=== PATIENT | female | born 1980 | race Caucasian/White ===

== ENCOUNTER 2016-05-19 07:36 | Emergency (ER) | payer OTHER ==
[~2016-05-19 07:36] MED LIST: IBUPROFEN600 MG PO; LEVOTHYROXINE75 MCG PO; PROVERA5 MG PO; TYLENOL/CODEINE #3 PO
--- NOTE | 2016-05-19 08:51 | ED NURSING NOTES ---
Clinical Report - Nurses [facility] [address] [place] [address] 05/19/2016 7:39 Patient: SCOOTER NEWMAN TRIAGE Triage time 07:46. Acuity: LEVEL 4. Chief Complaint: BACK PAIN and (back spasm). 07:51 05/19/16. Alert. No acute distress. SEPSIS SCREEN: Sepsis Screen. Negative (no infection suspected/documented). ROSANA COMA SCORE: [place] Coma Scale: 15- eyes open spontaneously (4); best verbal response- oriented x 4 (5); best motor response- obeys commands (6). --07:51 Saundra Heller R.N. 07:46 05/19/16. BP: 125/82. HR: 67. RR: 18. O2 saturation: 100% on room air. Temp: 98 F. Pain level now: 8/10. Additional comments: pt states pain "is a 20" when her back spasms. --07:51 Saundra Heller R.N. Weight: 89.3 kg stated. Height/Length: 66 inches Per Patient. BMI: 31.8. --09:22 Saundra Heller R.N. Medications Levothroid Oral. --07:47 Saundra Heller R.N. Allergies No Known Drug Allergy. --07:47 Saundra Heller R.N. History Historian: patient. Accompanied by family. This started yesterday. ( pt states she was moving furniture yesterday when the spasms started.). No numbness, weakness, tingling, trouble walking or fever. No extremity pain. PAST MEDICAL HX: Immunizations: up-to-date. Denies current . SOCIAL HX: Light tobacco smoker- less than 1/2 a pack per day. No alcohol use or drug use. FALL RISK ASSESSMENT: Fall risk assessment completed. No fall risk identified. NUTRITIONAL RISK ASSESSMENT: The nutritional risk assessment revealed no deficiencies. FUNCTIONAL ASSESSMENT: Functional assessment: no impairments noted. LEARNING NEEDS ASSESSMENT: The learning needs assessment revealed no barriers. SKIN INTEGRITY ASSESSMENT: Skin integrity risk assessment completed. No skin integrity risk identified. --07:51 Saundra Heller R.N. PROBLEMS: Syncope. --07:48 Saundra Heller R.N. ADDITIONAL SURGERIES: . Thyroid Surgery. --07:48 Saundra Heller R.N. Hysterectomy. --07:48 Saundra Heller R.N. Interventions ID band on patient. To treatment room. --07:51 Saundra Heller R.N. PHYSICAL ASSESSMENT 07:52 05/19/16. Ambulatory to room. GENERAL / NEURO / PSYCH: Appears in pain. RESPIRATORY: Respirations not labored. EXTREMITIES: ROM of extremities within normal limits. BACK: ROM of neck and back within normal limits. Soft tissue tenderness in the right mid and lower lumbar paraspinous region. --07:52 Saundra Heller R.N. NURSING PROGRESS NOTES 07:53 05/19/16. Two patient identifiers checked. Call light placed in reach. Bed placed in lowest position. Brakes of bed on. Patient ready for evaluation- chart flagged and notification provided. Patient informed about reason for wait and about plan of care. --07:53 Saundra Heller R.N. 08:53 05/19/2016 Dilaudid (HYDROmorphone HCl PF) IM 1 mg given. Given in the right deltoid. Allergies verified, confirmed 5 rights and sedative warning given to the patient. --08:53 Saundra Heller R.N. 08:55 05/19/2016 Toradol (Ketorolac Tromethamine) IM 60 mg given. Given in the left anterior lateral thigh. Allergies verified and confirmed 5 rights. --08:55 Saundra Heller R.N. 09:12 05/19/2016 Flexeril (Cyclobenzaprine HCl) PO Tablets 10 mg given. Allergies verified and confirmed 5 rights. --09:12 Saundra Heller R.N. DISPOSITION / DISCHARGE 09:23 05/19/16. No learning barriers present. Discharge instructions provided and reviewed with the patient and family. Reviewed warnings. Reviewed medication(s). Treatments reviewed. Activity restrictions reviewed. Work note given. Patient verbalized understanding. Written instructions provided in Seneg[place]e. The patient was discharged by the physician. She was discharged home and accompanied by family. She left the Emergency Department ambulatory and via private vehicle. Spouse driving. --09:23 Saundra Hleler R.N. 09:21 05/19/16. BP: 125/78. HR: 72. RR: 18. O2 saturation: 98%. Temp: deferred. Pain level now: 3/10. Additional comments: pt is able to move without pain. --09:23 Saundra Heller R.N. Locked/Released at 05/19/2016 10:03 by Saundra Heller R.N.
--- NOTE | 2016-05-19 08:51 | ED ORDER SUMMARY ---
..... Patient: SCOOTER NEWMAN OrderSheet [facility] VisitID: [id number] [address] [place] [address] 35y, F Registration Date/Time: 05/19/2016 ORDER SHEET Weight: 89.3 kg (stated) Allergies: No Known Drug Allergy GENERAL ORDERS: MEDICATION ORDERS: Dilaudid IM 1 mg (HIGH ALERT MEDICATION, NOW) (08:36 05/19/2016 Oz ESCAMILLA) (Ack 8:42 RMarsden R.N.) (8:53 RMarsden R.N.) Toradol IM 60 mg (NOW) (08:36 05/19/2016 Oz ESCAMILLA) (Ack 8:42 RMarsden R.N.) (8:55 RMarsden R.N.) Flexeril PO 10 mg (NOW) (09:08 05/19/2016 Oz ESCAMILLA) (Ack 9:08 RMarsden R.N.) (9:12 RMarsden R.N.) IV FLUIDS: ORDER SHEET NOTES: [Electronically signed by Saundra Heller R.N. (10:03 05/19/2016)] [Electronically signed by Tiera Haskins MD (17:52 05/19/2016)] [Electronically locked/signed by Saundra Heller R.N. (10:05/19/2016)]
--- NOTE | 2016-05-19 08:51 | ED CLINICAL REPORT ---
Clinical Report - Physicians/Mid Levels [facility] [address] [place] [address] 05/19/2016 7:39 Patient: SCOOTER NEWMAN Time Seen: 07:57. Arrived- By private vehicle. Historian- patient. HISTORY OF PRESENT ILLNESS Chief Complaint: BACK PAIN. Onset was yesterday and it is still present. Modifying factors- worsened by rotation, bending over or lifting. Not relieved by anything. It is described as being moderate in degree and in the area of the left side of the upper lumbar spine, left side of the lower lumbar spine, right side of the upper lumbar spine and right side of the lower lumbar spine. The quality is noted to be "pain". No radiation. No bladder dysfunction, bowel dysfunction, sensory loss or motor loss. Patient notes an injury (PT was moving heavy furniture.). No other injury. Similar symptoms previously: None. Recent medical care: Not recently seen/assessed. REVIEW OF SYSTEMS No fever, chills, eye discomfort, headache or sore throat. No cough, difficulty breathing, chest pain, skin rash or abdominal pain. No nausea, vomiting, diarrhea, black stools or difficulty with urination. No urinary frequency, hematuria or bloody stools. All systems otherwise negative, except as recorded above. PAST HISTORY Problems: Syncope. LNMP - Last Normal Menstrual Period. Additional Surgeries: . Hysterectomy. Thyroid Surgery. Medications: Levothroid Oral. Allergies: No Known Drug Allergy. SOCIAL HISTORY Smoker- current status unknown. No alcohol use or drug use. ADDITIONAL NOTES The nursing notes have been reviewed. PHYSICAL EXAM Vital Signs: 05/19/2016 07:46 BP: 125/82. HR: 67. RR: 18. O2 saturation: 100%. Temp: 98 F. Pain level now: 8/10. Have been reviewed. Appearance: Alert. No acute distress. (PT appears moderately uncomfortable.). HEENT: Normal external inspection. Eyes: Pupils equal, round and reactive to light. Neck: Normal inspection. Neck nontender. Painless ROM. CVS: Pulses normal. Respiratory: No respiratory distress. Back: Normal inspection. No tenderness. Skin: Skin warm and dry. Normal skin color. No rash. Normal skin turgor. Extremities: Extremities exhibit normal ROM. Extremities nontender. Neuro: Oriented X 3. Mood/affect normal. No motor deficit. No sensory deficit. LABS, X-RAYS, AND EKG Pulse Oximetry: 05/19/2016 07:46 O2 saturation: 100%. (FIO2 - room air). Interpretation: normal. PROGRESS AND PROCEDURES Course of Care: PT was given IM Dilaudid and Toradol and PO Flexeril, with improvement in sx. No evidence of serious of back pain was found. Patient counseled in person regarding the patient's stable condition, diagnosis and need for follow-up. Concerns were addressed. Old medical records reviewed. Disposition: Discharged. Condition: stable and improved. CLINICAL IMPRESSION Muscle strain of the low back. INSTRUCTIONS Apply ice for 20 minutes three times a day as needed and until better. Don't apply ice directly to skin and don't use while asleep. Do not work today. Warnings: SEDATIVE MEDICATION: You were given sedative medication during your visit. Do not drive or operate dangerous machinery for 6 hours. GENERAL WARNINGS: Return or contact your physician immediately if your condition worsens or changes unexpectedly, if not improving as expected, or if other problems arise. Prescription Medications: Hydrocodone/APAP 5mg / 325mg: take 1-2 orally every 4 hours as needed for pain. Dispense fifteen (15). No refill. Flexeril 10 mg: take 1 orally every 8 hours as needed for muscle spasm. Dispense fifteen (15). No refills. Substitution is permissible. Follow-up: Follow up with your doctor in seven days if not better. Understanding of the discharge instructions verbalized by patient. (Electronically signed by Tiera Haskins MD 05/19/2016 17:52)
--- NOTE | 2016-05-19 08:51 | ED ORDER SUMMARY ---
..... Patient: SCOOTER NEWMAN OrderSheet [facility] VisitID: [id number] [address] [place] [address] 35y, F Registration Date/Time: 05/19/2016 ORDER SHEET Weight: 89.3 kg (stated) Allergies: No Known Drug Allergy GENERAL ORDERS: MEDICATION ORDERS: Dilaudid IM 1 mg (HIGH ALERT MEDICATION, NOW) (08:36 05/19/2016 Oz ESCAMILLA) (Ack 8:42 RMarsden R.N.) (8:53 RMarsden R.N.) Toradol IM 60 mg (NOW) (08:36 05/19/2016 Oz ESCAMILLA) (Ack 8:42 RMarsden R.N.) (8:55 RMarsden R.N.) Flexeril PO 10 mg (NOW) (09:08 05/19/2016 Oz ESCAMILLA) (Ack 9:08 RMarsden R.N.) (9:12 RMarsden R.N.) IV FLUIDS: ORDER SHEET NOTES: [Electronically signed by Saundra Heller R.N. (10:03 05/19/2016)] [Electronically signed by Tirea Haskins MD (17:52 05/19/2016)] [Electronically locked/signed by Saundra Heller R.N. (10:05/19/2016)]
--- NOTE | 2016-05-19 17:52 | ED DISCHARGE INSTRUCTIONS ---
Patient: SCOOTER NEWMAN General Instructions [facility] VisitID: [id number] [place] [address] 35y, F Registration Date/Time: 05/19/2016 Muscle strain of the low back. INSTRUCTIONS Apply ice for 20 minutes three times a day as needed and until better. Don't apply ice directly to skin and don't use while asleep. Do not work today. Warnings: SEDATIVE MEDICATION: You were given sedative medication during your visit. Do not drive or operate dangerous machinery for 6 hours. GENERAL WARNINGS: Return or contact your physician immediately if your condition worsens or changes unexpectedly, if not improving as expected, or if other problems arise. Prescription Medications: Hydrocodone/APAP 5mg / 325mg: take 1-2 orally every 4 hours as needed for pain. Dispense fifteen (15). No refill. Flexeril 10 mg: take 1 orally every 8 hours as needed for muscle spasm. Dispense fifteen (15). No refills. Substitution is permissible. Follow-up: Follow up with your doctor in seven days if not better. Understanding of the discharge instructions verbalized by patient. ADDITIONAL INFORMATION Back Pain [Acute Or Chronic] Back pain is usually caused by an injury to the muscles or ligaments of the spine. Sometimes the disks that separate each bone in the spine may bulge and cause pain by pressing on a nearby nerve. Back pain may also appear after a sudden twisting/bending force (such as in a car accident), after a simple awkward movement, or lifting something heavy with poor body positioning. In either case, muscle spasm is often present and adds to the pain. Acute back pain usually gets better in one to two weeks. Back pain related to disk disease, arthritis in the spinal joints or spinal stenosis (narrowing of the spinal canal) can become chronic and last for months or years. Unless you had a physical injury (for example, a car accident or fall) X-rays are usually not ordered for the initial evaluation of back pain. If pain continues and does not respond to medical treatment, x-rays and other tests may be performed at a later time. Home Care: You may need to stay in bed the first few days. But, as soon as possible, begin sitting or walking to avoid problems with prolonged bed rest (muscle weakness, worsening back stiffness and pain, blood clots in the legs). When in bed, try to find a position of comfort. A firm mattress is best. Try lying flat on your back with pillows under your knees. You can also try lying on your side with your knees bent up towards your chest and a pillow between your knees. Avoid prolonged sitting. This puts more stress on the lower back than standing or walking. During the first two days after injury, apply an ICE PACK to the painful area for 20 minutes every 2-4 hours. This will reduce swelling and pain. HEAT (hot shower, hot bath or heating pad) works well for muscle spasm. You can start with ice, then switch to heat after two days. Some patients feel best alternating ice and heat treatments. Use the one method that feels the best to you. You may use acetaminophen (Tylenol) or ibuprofen (Motrin, Advil) to control pain, unless another pain medicine was prescribed. [NOTE: If you have chronic liver or kidney disease or ever had a stomach ulcer or GI bleeding, talk with your doctor before using these medicines.] Be aware of safe lifting methods and do not lift anything over 15 pounds until all the pain is gone. Follow Up with your doctor or this facility if your symptoms do not start to improve after one week. Physical therapy may be needed. [NOTE: If X-rays were taken, they will be reviewed by a radiologist. You will be notified of any new findings that may affect your care.] Get Prompt Medical Attention if any of the following occur: Pain becomes worse or spreads to your legs Weakness or numbness in one or both legs Loss of bowel or bladder control Numbness in the groin or genital area You have been given the following additional information: Back Pain (Acute Or Chronic) Do not work today. (Electronically signed by Tiera Haskins MD 05/19/2016 17:52)
--- NOTE | 2016-05-19 17:52 | ED MAR SUMMARY ---
..... Medication Administration Record [facility] [address] [place] [address] Patient: SCOOTER NEWMAN Visit ID: [id number] 35y, F Weight: 89.3 kg Height/Length: 66 in BMI: 31.8 ALLERGIES: No Known Drug Allergy Given 08:53 05/19/2016 Saundra Heller, RRustyNRusty Medication Administered: DILAUDID [IM] (HYDROMORPHONE HCL PF), Dose: 1 mg IM. Medication Ordered: Dilaudid IM 1 mg (HIGH ALERT MEDICATION, NOW). Given 08:55 05/19/2016 Saundra Heller, RRustyN. Medication Administered: TORADOL [IM] (KETOROLAC TROMETHAMINE), Dose: 60 mg IM. Medication Ordered: Toradol IM 60 mg (NOW). Given 09:12 05/19/2016 Saundra Heller, R.N. Medication Administered: FLEXERIL [PO] (CYCLOBENZAPRINE HCL), Dose: 10 mg Tablets PO. Medication Ordered: Flexeril PO 10 mg (NOW).
--- NOTE | 2016-05-19 17:52 | ED MED RECONCILIATION SUMMARY ---
Patient: SCOOTER NEWMAN Medication Reconciliation Report [facility] VisitID: [id number] [place] [address] 35y, F Registration Date/Time: 05/19/2016 Weight: 89.3 kg Height/Length: 66 in. BMI: 31.8 ALLERGIES: No Known Drug Allergy The patient's Home Medications are listed below: THE FOLLOWING MEDICATIONS NEED TO BE RECONCILED: Levothroid Oral The source(s) of the original Home Medication information: Not obtained. The following Medications were given to the patient in the Emergency Department: Dilaudid [IM] IM 1 mg, administered: 05/19/2016 8:53:00 AM Toradol [IM] IM 60 mg, administered: 05/19/2016 8:55:00 AM Flexeril [PO] PO 10 mg, administered: 05/19/2016 9:12:00 AM The following Medications were prescribed to the patient: Hydrocodone/APAP 5mg / 325mg: take 1-2 orally every 4 hours as needed for pain. Dispense fifteen (15). No refill. -- Tiera Haskins MD Flexeril 10 mg: take 1 orally every 8 hours as needed for muscle spasm. Dispense fifteen (15). No refills. Substitution is permissible. -- Tiera Haskins MD
--- NOTE | 2016-05-19 17:52 | ED MAR SUMMARY ---
..... Medication Administration Record [facility] [address] [place] [address] Patient: SCOOTER NEWMAN Visit ID: [id number] 35y, F Weight: 89.3 kg Height/Length: 66 in BMI: 31.8 ALLERGIES: No Known Drug Allergy Given 08:53 05/19/2016 Saundra Heller, RRustyNRusty Medication Administered: DILAUDID [IM] (HYDROMORPHONE HCL PF), Dose: 1 mg IM. Medication Ordered: Dilaudid IM 1 mg (HIGH ALERT MEDICATION, NOW). Given 08:55 05/19/2016 Saundra Heller, RRustyN. Medication Administered: TORADOL [IM] (KETOROLAC TROMETHAMINE), Dose: 60 mg IM. Medication Ordered: Toradol IM 60 mg (NOW). Given 09:12 05/19/2016 Saundra Heller, R.N. Medication Administered: FLEXERIL [PO] (CYCLOBENZAPRINE HCL), Dose: 10 mg Tablets PO. Medication Ordered: Flexeril PO 10 mg (NOW).
--- NOTE | 2016-05-19 17:52 | ED MED RECONCILIATION SUMMARY ---
Patient: SCOOTER NEWMAN Medication Reconciliation Report [facility] VisitID: [id number] [place] [address] 35y, F Registration Date/Time: 05/19/2016 Weight: 89.3 kg Height/Length: 66 in. BMI: 31.8 ALLERGIES: No Known Drug Allergy The patient's Home Medications are listed below: THE FOLLOWING MEDICATIONS NEED TO BE RECONCILED: Levothroid Oral The source(s) of the original Home Medication information: Not obtained. The following Medications were given to the patient in the Emergency Department: Dilaudid [IM] IM 1 mg, administered: 05/19/2016 8:53:00 AM Toradol [IM] IM 60 mg, administered: 05/19/2016 8:55:00 AM Flexeril [PO] PO 10 mg, administered: 05/19/2016 9:12:00 AM The following Medications were prescribed to the patient: Hydrocodone/APAP 5mg / 325mg: take 1-2 orally every 4 hours as needed for pain. Dispense fifteen (15). No refill. -- Tiera Haskins MD Flexeril 10 mg: take 1 orally every 8 hours as needed for muscle spasm. Dispense fifteen (15). No refills. Substitution is permissible. -- Teira Haskins MD
== END 2016-05-19 09:23 | disposition home or self-care (01) ==
LOC: ED SRH 07:36
DX: S39.012A Strain of muscle, fascia and tendon of lower back, initial encounter (principal); X50.0XXA Overexertion from strenuous movement or load, initial encounter; Y93.9 Activity, unspecified; Y92.9 Unspecified place or not applicable; Y99.9 Unspecified external cause status; Z79.899 Other long term (current) drug therapy

== ENCOUNTER 2016-07-10 14:15 | Emergency (ER) | payer OTHER ==
--- NOTE | 2016-07-10 14:45 | ED NURSING NOTES ---
Clinical Report - Nurses [facility] [address] [place] [address] 07/10/2016 14:19 Patient: SCOOTER NEWMAN TRIAGE Triage time 14:27. Acuity: LEVEL 4. Chief Complaint: RIGHT LOWER EXTREMITY PAIN. Alert. No acute distress. MELODIE COMA SCORE: [place] Coma Scale: 15- eyes open spontaneously (4); best verbal response- oriented x 4 (5); best motor response- obeys commands (6). --14:35 Madalyn Jacome R.N. 14:27 07/10/16. BP: 119/78. HR: 65. RR: 16. O2 saturation: 100% on room air. Temp: 98.3 F (oral). Pain level now: 09/22. --14:35 Madalyn Jacome R.N. Weight: 94.3 kg stated. Height/Length: 66 inches Per Patient. BMI: 33.6. --14:31 Madalyn Jacome R.N. Medications Levothyroxine Sodium Oral. --14:29 Madalyn Jacome R.N. Ibuprofen Oral. --14:30 Madalyn Jacome R.N. Medication/allergy information source: the patient. --14:35 Madalyn Jacome R.N. Allergies No Known Drug Allergy. --14:30 Madalyn Jacome R.N. History Arrived by private vehicle. Historian: patient. Unaccompanied. Primary physician (Perla). This occurred (about 1 1/2 weeks ago got worse). ( seen here recently for back spasms, then had to do "a big walk" at work now having shooting pain from buttock down leg). SOCIAL HX: Light tobacco smoker- less than 1/2 a pack per day. Occasional alcohol use. No drug use. FALL RISK ASSESSMENT: Fall risk assessment completed. No fall risk identified. FUNCTIONAL ASSESSMENT: Functional assessment: no impairments noted. Functional assessment performed: independent with the activities of daily living; mobility impairment present- this mobility impairment is a new problem. LEARNING NEEDS ASSESSMENT: The learning needs assessment revealed no barriers. --14:35 Madalyn Jacome R.N. PROBLEMS: Myofascial Strain. Syncope. LNMP - Last Normal Menstrual Period. --14:30 Madalyn Jacome R.N. ADDITIONAL SURGERIES: . Hysterectomy. Thyroid Surgery. --14:30 Madalyn Jacome R.N. Assessment GENERAL / NEURO / PSYCH: The patient is awake and alert, is oriented and cooperative and appears uncomfortable. She has good eye contact. RESPIRATORY: Respirations not labored. SKIN: Skin is warm and dry. --14:35 Madalyn Jacome R.N. Interventions ID band on patient. To treatment room. --14:35 Madalyn Jacome R.N. PHYSICAL ASSESSMENT 14:38 07/10/16. Ambulatory to room. Patient gowned. GENERAL / NEURO / PSYCH: The patient is awake and alert, is oriented and cooperative and appears uncomfortable. She has good eye contact. EXTREMITIES: ( states pain is "shooting" down her right leg, occasionally her right toes get "numb"). SKIN: Skin is warm and dry. --14:38 Madalyn Jacome R.N. NURSING PROGRESS NOTES 14:38 07/10/16. Patient gowned. Call light placed in reach. Side rails up x 1. Bed placed in lowest position. Brakes of bed on. --14:38 Madalyn Jacome R.N. 14:45. The patient is calm and resting quietly. Overall patient status is the same- she states feels the same. GENERAL / NEURO / PSYCH: Alert. Oriented X 4. RESPIRATORY: No respiratory distress. SKIN: Skin is warm and dry. --14:57 Madalyn Jacome R.N. DISPOSITION / DISCHARGE Departure time: 1445. Condition at departure: stable. Fall risk assessment completed. Risk factors identified include patient impairment of mobility. No learning barriers present. Discharge instructions provided and reviewed with the patient. Reviewed medication(s). Prescription(s) given to the patient. Patient verbalized understanding. Written instructions provided in [place]. The patient was discharged home and unaccompanied at time of discharge. She left the Emergency Department ambulatory and via private vehicle. --14:55 Madalyn Jacome R.N. 14:45 07/10/16. BP: 119/78. --14:55 Madalyn Jacome R.N. Locked/Released at 07/10/2016 14:59 by Madalyn Jacome R.N.
--- NOTE | 2016-07-10 14:45 | ED CLINICAL REPORT ---
Clinical Report - Physicians/Mid Levels [facility] [address] [place] [address] 07/10/2016 14:19 Patient: SCOOTER NEWMAN Time Seen: 14:31 Jul 10 2016. Arrived- By private vehicle. Historian- patient. HISTORY OF PRESENT ILLNESS Chief Complaint: RIGHT LEG PAIN. The quality is noted to be "pain" and similar to prior episodes. It is still present. No bladder dysfunction, bowel dysfunction, sensory loss or motor loss. Additional history - One month previously patient reports lifting, and having pain to her back, was seen in the emergency department. The pain was improving, she has been seeing chiropractor. Then she reports increase in walking one day and had some pain to the right side, now paresthesias on the right lower extremity only with movement, attempting to sit or stand and ambulation. No pain while laying still or lying supine. Denies any paresthesias. Denies history of similar. Denies any new direct trauma. Denies any urinary incontinence, urgency or frequency. Denies a rash. Patient notes the possibility of an injury. REVIEW OF SYSTEMS No fever, chills, eye irritation, difficulty with urination or urinary frequency. No cough or difficulty breathing. All systems otherwise negative, except as recorded above. PAST HISTORY Has not had intervertebral disc disease. No history of arthritis. Problems: Myofascial Strain. Syncope. LNMP - Last Normal Menstrual Period. Additional Surgeries: . Hysterectomy. Thyroid Surgery. Medications: Ibuprofen Oral. Levothyroxine Sodium Oral. Allergies: No Known Drug Allergy. SOCIAL HISTORY Smoker- current status unknown. Alcohol use. No drug use. ADDITIONAL NOTES The nursing notes have been reviewed. PHYSICAL EXAM Vital Signs: 07/10/2016 14:27 BP: 119/78. HR: 65. RR: 16. O2 saturation: 100%. Temp: 98.3 F. Pain level now: 7/10. Appearance: Alert. Eyes: Pupils equal, round and reactive to light. ENT: Ears normal. Neck: Neck nontender. CVS: Heart sounds normal. Pulses normal. Respiratory: No respiratory distress. Breath sounds normal. Abdomen: No visible injury. Soft. No mass. No rebound tenderness. Back: Normal inspection. No tenderness. No soft tissue tenderness. Skin: Skin warm. Normal skin color. Extremities: Extremities exhibit normal ROM. No lower extremity edema. No calf tenderness. (pain with elevation, full passive/ active rom,). Neuro: Oriented X 3. Mood/affect normal. No motor deficit. No sensory deficit. PROGRESS AND PROCEDURES Course of Care: Pt in the er with no signs of red flags. Able to ambulate. There are no risks for spinal epidural abscess or hematoma as patient is without any risk factors such as IVDA or evidence of active infection, no midline tenderness to percussion. Hence I do not feel emergent imaging with an MRI is indicated. However I did discuss with the patient that if these symptoms develop, or if the pain does not resolve an MRI may need to be done outpatient, or in the ED if symptoms worsen acutely or new onset of the above mentioned symptoms develop. 07/10/2016 14:45 BP: 119/78. Patient is stable. The patient's symptoms are unchanged. Patient/family counseled. Disposition: Discharged. CLINICAL IMPRESSION Acute right sided sciatica. No low back pain or sensory loss. INSTRUCTIONS Apply ice. Prescription Medications: Flexeril 10 mg: Take 1 orally every 8 hours as needed for muscle spasm. Dispense twenty (20). No refills. Substitution is permissible. Ibuprofen 800 mg tablets: take 1 tablet orally every 8 hours for 5 days, as needed for pain. Dispense fifteen (15). No refill. Follow-up: Follow up with your doctor Thursday. (Electronically signed by Janice Ying P.A.-C 07/10/2016 15:00)
--- NOTE | 2016-07-10 15:01 | ED MAR SUMMARY ---
..... Medication Administration Record [facility] [address] [place], [place] [id number] Patient: SCOOTER NEWMAN Visit ID: [id number] 36y, F Weight: 94.3 kg Height/Length: 66 in BMI: 33.6 ALLERGIES: No Known Drug Allergy
--- NOTE | 2016-07-10 15:01 | ED MAR SUMMARY ---
..... Medication Administration Record [facility] [address] [place], [place] [id number] Patient: SCOOTER NEWMAN Visit ID: [id number] 36y, F Weight: 94.3 kg Height/Length: 66 in BMI: 33.6 ALLERGIES: No Known Drug Allergy
--- NOTE | 2016-07-10 15:01 | ED MED RECONCILIATION SUMMARY ---
Patient: SCOOTER NEWMAN Medication Reconciliation Report [facility] VisitID: [id number] [address] [place] [address] 36y, F Registration Date/Time: 07/10/2016 Weight: 94.3 kg Height/Length: 66 in. BMI: 33.6 ALLERGIES: No Known Drug Allergy The patient's Home Medications are listed below: THE FOLLOWING MEDICATIONS NEED TO BE RECONCILED: Ibuprofen Oral Levothyroxine Sodium Oral The source(s) of the original Home Medication information: patient The following Medications were given to the patient in the Emergency Department: None. The following Medications were prescribed to the patient: Flexeril 10 mg: Take 1 orally every 8 hours as needed for muscle spasm. Dispense twenty (20). No refills. Substitution is permissible. -- Janice Ying, P.A.-C Ibuprofen 800 mg tablets: take 1 tablet orally every 8 hours for 5 days, as needed for pain. Dispense fifteen (15). No refill. -- Janice Ying, P.A.-C
--- NOTE | 2016-07-10 15:01 | ED DISCHARGE INSTRUCTIONS ---
Patient: SCOOTER NEWMAN General Instructions [facility] VisitID: [id number] [address] [place] [address] 36y, F Registration Date/Time: 07/10/2016 Acute right sided sciatica. No low back pain or sensory loss. INSTRUCTIONS Apply ice. Prescription Medications: Flexeril 10 mg: Take 1 orally every 8 hours as needed for muscle spasm. Dispense twenty (20). No refills. Substitution is permissible. Ibuprofen 800 mg tablets: take 1 tablet orally every 8 hours for 5 days, as needed for pain. Dispense fifteen (15). No refill. Follow-up: Follow up with your doctor Thursday. ADDITIONAL INFORMATION Sciatica Sciatica ("Lumbar Radiculopathy") causes a pain that spreads from the lower back down into the buttock, hip and leg. Sometimes leg pain can occur without any back pain. Sciatica is due to irritation or pressure on a spinal nerve as it comes out of the spinal canal. This is most often due to a bulge or rupture of a nearby spinal disk (the cartilage cushion between each spinal bone), which presses on a nearby nerve. Other causes include spinal stenosis (narrowing of the spinal canal) and spasm of the pyriform muscle (a muscle in the buttocks that the sciatic nerve passes through). Sciatica may begin after a sudden twisting/bending force (such as in a car accident), or sometimes after a simple awkward movement. In either case, muscle spasm is commonly present and contributes to the pain. The diagnosis of sciatica is made from the symptoms and physical exam. Unless you had a physical injury (such as a car accident or fall), X-rays are usually not ordered for the initial evaluation of sciatica because the nerves and disks cannot be seen on an x-ray. If signs of a compressed nerve are present (for example, loss of tendon reflex or strength in the leg), an MRI (magnetic resonance imaging) scan will need to be scheduled as an outpatient. Most sciatica (80-90%) gets better with medicine, exercise, physical therapy. If symptoms continue after at least three months of medical treatment, surgery may be considered. Home Care: You may need to stay in bed the first few days. But, as soon as possible, begin sitting or walking to avoid problems with prolonged bed rest. When in bed, try to find a position of comfort. A firm mattress is best. Try lying flat on your back with pillows under your knees. You can also try lying on your side with your knees bent up towards your chest and a pillow between your knees. Avoid prolonged sitting. This puts more stress on the lower back than standing or walking. Some persons find relief with heat (hot shower, hot bath or heating pad) and massage, while others prefer cold packs (crushed or cubed ice in a plastic bag, wrapped in a towel). Try both and use the method that feels best for 20 minutes several times a day. You may use acetaminophen (Tylenol) or ibuprofen (Motrin, Advil) to control pain, unless another pain medicine was prescribed. [ NOTE: If you have chronic liver or kidney disease or ever had a stomach ulcer or GI bleeding, talk with your doctor before using these medicines.] Be aware of safe lifting methods and do not lift anything over 15 pounds until all the pain is gone. Follow Up with your doctor or this facility if your symptoms do not start to improve after one week. Physical therapy or further testing may be needed. [NOTE: If X-rays were taken, they will be reviewed by a radiologist. You will be notified of any new findings that may affect your care.] Get Prompt Medical Attention if any of the following occur: Pain becomes worse, not controlled by the prescribed medicine Weakness or numbness in one or both legs Numbness in the groin, genital area Loss of bowel or bladder control You have been given the following additional information: Back Pain W/ Sciatica (Electronically signed by Jaince Ying P.A.-C 07/10/2016 15:00)
--- NOTE | 2016-07-10 15:01 | ED MED RECONCILIATION SUMMARY ---
Patient: SCOOTER NEWMAN Medication Reconciliation Report [facility] VisitID: [id number] [address] [place] [address] 36y, F Registration Date/Time: 07/10/2016 Weight: 94.3 kg Height/Length: 66 in. BMI: 33.6 ALLERGIES: No Known Drug Allergy The patient's Home Medications are listed below: THE FOLLOWING MEDICATIONS NEED TO BE RECONCILED: Ibuprofen Oral Levothyroxine Sodium Oral The source(s) of the original Home Medication information: patient The following Medications were given to the patient in the Emergency Department: None. The following Medications were prescribed to the patient: Flexeril 10 mg: Take 1 orally every 8 hours as needed for muscle spasm. Dispense twenty (20). No refills. Substitution is permissible. -- Janice Ying, P.A.-C Ibuprofen 800 mg tablets: take 1 tablet orally every 8 hours for 5 days, as needed for pain. Dispense fifteen (15). No refill. -- Janice Ying, P.A.-C
== END 2016-07-10 14:45 | disposition home or self-care (01) ==
LOC: ED SRH 14:15
DX: M54.31 Sciatica, right side (principal); Z79.899 Other long term (current) drug therapy; Z79.1 Long term (current) use of non-steroidal anti-inflammatories (NSAID)